=== PATIENT | male | born 1985 | race Caucasian/White ===

== ENCOUNTER 2020-12-12 22:53 | Emergency (ER) | payer SELFPAY ==
[2020-12-12 23:52] LABS: Absolute Lymphocytes (CBC) 3.2 K/uL (0.7-4.9); Basophils % 0.8 % (0-1.3); Hematocrit 37.6 % (39.6-49.0); Lymphocytes % 47.1 % (15.3-44.8); MPV 7.8 fL (7.6-11.3); Protime INR 1.12; RBC Red Blood Cell Count 4.34 M/uL (4.33-5.43)
[2020-12-13 00:12] LABS: ALT/SGPT 32 U/L (12-78); AST/SGOT 15 U/L (15-37); Albumin 3.6 g/dL (3.4-5.0); Alkaline Phosphatase 102 U/L (45-117); BUN Blood Urea Nitrogen 14 mg/dL (7-18); Bicarbonate 25 mmol/L (21-32); Bilirubin Direct 0.1 mg/dL (0-0.2); Bilirubin Total 0.3 mg/dL (0.2-1.0); Glucose Level 316 mg/dL (74-106); NT PRO-BNP 272 pg/mL (<125); Potassium 3.6 mmol/L (3.5-5.1); Protein, Total 7.2 g/dL (6.4-8.2); Sodium Level 140 mmol/L (136-145); Troponin (Emerg Dept Use Only) < 0.02 ng/mL (0.0-0.045)
[2020-12-13] MEDS ORDERED: ASPIRIN EC 81 MG TAB PO ONE (00:21)
--- NOTE | 2020-12-13 03:24 | ER ---
Nurse's Notes [facility] Name: Shane Cuevas Age: 35 yrs Sex: Male : 1985 Arrival Date: 12/12/2020 Time: 22:58 Bed 28 Private MD: Diagnosis: Chest pain, unspecified Presentation: 12/12 22:59 Chief complaint: Patient states: BIBA. Pt was at rehab facility and felt "a little bc5 light headed and my chest was kind of hurting" Nurse at facility took BP which was "190 something over 140... it' s' never been that high with chest pain" Pt newly DX with HTN approx 20 days ago and started on Lisinopril 5 mg which was increased to 10 mg d/t "high readings" A\\T\\O x 3, RR is even and unlabored, speaking in clear and complete sentences at this time. Blood sugar 250, PMH of Bi-polar, metabolic syndrome and HTN. Coronavirus screen: Vaccine status: Patient reports receiving the 1st dose of the Covid vaccine. Ebola Screen: Patient negative for fever greater than or equal to 101.5 degrees Fahrenheit, and additional compatible Ebola Virus Disease symptoms Patient denies exposure to infectious person. Patient denies travel to an Ebola-affected area in the 21 days before illness onset. No symptoms or risks identified at this time. Initial Sepsis Screen: Does the patient meet any 2 criteria? No. Patient's initial sepsis screen is negative. Does the patient have a suspected source of infection? No. Patient's initial sepsis screen is negative. Risk Assessment: Do you want to hurt yourself or someone else? Patient reports no desire to harm self or others. Onset of symptoms was December 12, 2020. Care prior to arrival:. 22:59 Method Of Arrival: EMS: [facility] bc5 22:59 Acuity: KIKI 3 bc5 Triage Assessment: 23:07 General: Appears in no apparent distress. comfortable, Behavior is calm, cooperative, bc5 appropriate for age. Pain: Complains of pain in chest. Historical: - Allergies: 23:05 No Known Allergies; bc5 - PMHx: 23:05 Hypertensive disorder; bc5 23:06 Bipolar disorder; bc5 - Immunization history:: Adult Immunizations Last tetanus immunization: < 5 years ago Flu vaccine is not up to date. - Social history:: Smoking status: Patient denies any tobacco usage or history of. Screenin:08 Abuse screen: Denies threats or abuse. Denies injuries from another. Nutritional bc5 screening: No deficits noted. Tuberculosis screening: No symptoms or risk factors identified. Fall Risk None identified. No fall in past 12 months (0 pts). No secondary diagnosis (0 pts). IV access (20 points). Ambulatory Aid- None/Bed Rest/Nurse Assist (0 pts). Gait- Normal/Bed Rest/Wheelchair (0 pts) Mental Status- Oriented to own ability (0 pts). Total De La Garza Fall Scale indicates No Risk (0-24 pts). Assessment: 23:07 Neuro: No deficits noted. Cardiovascular: Reports chest pain, lightheadedness, Denies [facility] Rhythm is. Respiratory: No deficits noted. GI: No deficits noted. : No deficits noted. EENT: No deficits noted. Derm: No deficits noted. Musculoskeletal: No deficits noted. 12/13 00:21 Reassessment: No changes from previously documented assessment. Patient and/or family bc5 updated on plan of care and expected duration. Pain level reassessed. Patient denies pain at this time. Patient states symptoms have improved. 02:30 Reassessment: No changes from previously documented assessment. Patient and/or family bc5 updated on plan of care and expected duration. Pain level reassessed. Patient denies pain at this time. Patient states feeling better. Patient states symptoms have improved. 03:58 Reassessment: sue from [facility] is coming to pick patient up and to take back to [facility]. Vital Signs: 12/12 22:59 BP 172 / 106; Pulse 75; Resp 16; Temp 97.9; Pulse Ox 99% on R/A; Weight 106.59 kg (R); bc5 Height 6 ft. 0 in. (182.88 cm) (R); Pain 3/10; 12/13 00:19 BP 149 / 94; Pulse 66; Resp 15; Pulse Ox 97% on R/A; Pain 0/10; bc5 02:30 BP 154 / 87; Pulse 68; Resp 15; Temp 98.5(O); Pulse Ox 99% on R/A; Pain 0/10; bc5 03:25 BP 162 / 99; Pulse 56; Resp 14; Temp 98.5(O); Pulse Ox 98% ; Pain 0/10; bc5 12/12 22:59 Body Mass Index 31.87 (106.59 kg, 182.88 cm) bc5 ED Course: 12/12 22:58 Patient arrived in ED. em 22:59 Pamela Vences RN is Primary Nurse. bc5 23:03 Shane Guerrier NP is PHCP. pm1 23:03 Juan Rod MD is Attending Physician. pm1 23:05 Triage completed. bc5 23:08 Arm band placed on right wrist. bc5 23:08 Patient has correct armband on for positive identification. Placed in gown. Bed in low bc5 position. Call light in reach. Side rails up X2. 23:08 No provider procedures requiring assistance completed. Inserted saline lock: 20 gauge bc5 in right forearm, using aseptic technique. 23:31 XRAY Chest (1 view) In Process Unspecified. EDMS 12/13 03:27 IV discontinued, intact, bleeding controlled, No redness/swelling at site. Pressure bc5 dressing applied. Administered Medications: 12/12 23:55 Drug: Aspirin Chewable Tablet 324 mg Route: PO; cc4 12/13 00:21 Follow up: Response: No adverse reaction 5 Outcome: 03:23 Discharge ordered by . pm1 03:27 Condition: improved 5 03:57 Discharged to Rehab Facility bc5 03:57 Discharge instructions given to patient, Instructed on discharge instructions, follow up and referral plans. medication usage, Prescriptions given X 1. 04:05 Patient left the ED. 5 Signatures: Dispatcher [employer] EDPR Denzel Abernathy RN RN Shane Guerrier NP STAY CUTTER pm1 Treasure Perez RN RN cc4 Pamela Vences RN RN bc5 Corrections: (The following items were deleted from the chart) 12/12 23:42 23:08 Inserted saline lock: 5 5
--- NOTE | 2020-12-13 03:24 | EDPHYS ---
Physician Documentation [facility] Name: Shane Cuevas Age: 35 yrs Sex: Male : 1985 Arrival Date: 12/12/2020 Time: 22:58 Bed 28 Private MD: ED Physician Juan Rod HPI: 12/13 01:36 This 35 yrs old Male presents to ER via EMS with complaints of chest pain. pm1 01:36 The patient or guardian reports chest pain that is located primarily in the mid-sternal pm1 area. The pain does not radiate. Associated signs and symptoms: Pertinent positives: headache. The chest pain is described as sharp. Duration: The patient or guardian reports a single episode. Modifying factors: the symptoms are aggravated by deep breath, palpation of area. Severity of pain: in the emergency department the pain is a 3 / 10. The patient has not experienced similar symptoms in the past. The patient has been recently seen by a physician: recently diagnosed with hypertension and started on lisinopril 5 mg p.o. daily. Patient dose recently increased to 10 mg p.o. daily. Patient took last dosage 1-1/2 days ago. 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 Historical: - Allergies: 12/12 23:05 No Known Allergies; bc5 - PMHx: 23:05 Hypertensive disorder; bc5 23:06 Bipolar disorder; bc5 - Immunization history:: Adult Immunizations Last tetanus immunization: < 5 years ago Flu vaccine is not up to date. - Social history:: Smoking status: Patient denies any tobacco usage or history of. ROS: 12/13 01:36 Constitutional: Negative for fever, chills, and weight loss. pm1 Respiratory: Negative for shortness of breath, cough, wheezing, and pleuritic chest pain, Abdomen/GI: Negative for abdominal pain, nausea, vomiting, diarrhea, and constipation, Back: Negative for injury and pain, MS/Extremity: Negative for injury and deformity, Skin: Negative for injury, rash, and discoloration. Cardiovascular: Positive for chest pain, Negative for edema, palpitations. Neuro: Positive for dizziness, headache, Negative for numbness, tingling, weakness. All other systems are negative. Exam: 01:36 Constitutional: This is a well developed, well nourished patient who is awake, alert, pm1 and in no acute distress. Head/Face: Normocephalic, atraumatic. 01:36 Back: No spinal tenderness. No costovertebral tenderness. Full range of motion. Skin: Warm, dry with normal turgor. Normal color with no rashes, no lesions, and no evidence of cellulitis. MS/ Extremity: Pulses equal, no cyanosis. Neurovascular intact. Full, normal range of motion. 01:36 Eyes: Exam is negative for acute changes, Extraocular movements: no acute changes, Conjunctiva: no acute changes, no injection, Sclera: no acute changes, icterus, is not appreciated. 01:36 ENT: Exam is negative for acute changes, Mouth: no acute changes, Lips: normal, moist, Oral mucosa: normal, pink and intact, moist. 01:36 Cardiovascular: Rate: normal, Rhythm: regular, Pulses: no pulse deficits are appreciated. 01:36 Respiratory: Exam negative for acute changes, respiratory distress, shortness of breath. 01:36 Neuro: Exam negative for acute changes, Orientation: is normal, Mentation: is normal, Motor: is normal, moves all fours. Vital Signs: 12/12 22:59 BP 172 / 106; Pulse 75; Resp 16; Temp 97.9; Pulse Ox 99% on R/A; Weight 106.59 kg (R); bc5 Height 6 ft. 0 in. (182.88 cm) (R); Pain 3/10; 12/13 00:19 BP 149 / 94; Pulse 66; Resp 15; Pulse Ox 97% on R/A; Pain 0/10; bc5 02:30 BP 154 / 87; Pulse 68; Resp 15; Temp 98.5(O); Pulse Ox 99% on R/A; Pain 0/10; bc5 03:25 BP 162 / 99; Pulse 56; Resp 14; Temp 98.5(O); Pulse Ox 98% ; Pain 0/10; bc5 12/12 22:59 Body Mass Index 31.87 (106.59 kg, 182.88 cm) 5 MDM: 12/12 23:03 Patient medically screened. pm1 12/13 01:43 Data reviewed: vital signs. pm1 03:22 ED course: Negative troponin x2, reproducible chest pain with palpitation and deep pm1 breathing. Therefore will discharge the patient home follow-up. 12/12 23:04 Order name: Basic Metabolic Panel; Complete Time: 00:29 pm1 12/12 23:04 Order name: CBC with Diff; Complete Time: 00:29 pm1 12/12 23:04 Order name: LFT's; Complete Time: 00:29 pm1 12/12 23:04 Order name: Magnesium; Complete Time: 00:29 pm1 12/12 23:04 Order name: NT PRO-BNP; Complete Time: 00:29 pm1 12/12 23:04 Order name: PT-INR; Complete Time: 00:29 pm1 12/12 23:04 Order name: Troponin (emerg Dept Use Only); Complete Time: 00:29 pm1 12/12 23:04 Order name: XRAY Chest (1 view) pm1 12/12 23:04 Order name: EKG; Complete Time: 23:05 pm1 12/12 23:04 Order name: Cardiac monitoring; Complete Time: 23:09 pm1 12/12 23:04 Order name: EKG - Nurse/Tech; Complete Time: 23:41 pm1 12/12 23:04 Order name: IV Saline Lock; Complete Time: 23:41 pm1 12/13 02:34 Order name: Troponin (emerg Dept Use Only); Complete Time: 03:22 pm1 12/12 23:04 Order name: Labs collected and sent; Complete Time: 23:41 pm1 12/12 23:04 Order name: O2 Per Protocol; Complete Time: 23:09 pm1 12/12 23:04 Order name: O2 Sat Monitoring; Complete Time: 23:09 pm1 Administered Medications: 12/12 23:55 Drug: Aspirin Chewable Tablet 324 mg Route: PO; cc4 12/13 00:21 Follow up: Response: No adverse reaction bc5 Disposition: 12/14 03:01 Co-signature as Attending Physician, Juan Rod MD. ma2 Disposition Summary: 12/13/20 03:23 Discharge Ordered Location: Home pm1 Problem: new pm1 Symptoms: have improved pm1 Condition: Stable pm1 Diagnosis - Chest pain, unspecified pm1 Followup: pm1 - With: Emergency Department - When: As needed - Reason: Worsening of condition Followup: pm1 - With: Private Physician - When: 2 - 3 days - Reason: Recheck today's complaints, Continuance of care, Re-evaluation by your physician Discharge Instructions: - Discharge Summary Sheet pm1 - Nonspecific Chest Pain, Adult pm1 - Hypertension, Adult pm1 - Managing Your Hypertension pm1 Forms: - Medication Reconciliation Form pm1 - Thank You Letter pm1 - Antibiotic Education pm1 - Prescription Opioid Use pm1 Prescriptions: - Lisinopril 10 mg Oral Tablet - take 1 tablet by ORAL route once daily; 20 tablet; Refills: 0, Product pm1 Selection Permitted Signatures: Dispatcher [employer] EDMS Shane Guerrier NP MANAGER DIALYSIS pm1 Juan Rod MD MD ma2 Treasure Perez, RN RN cc4 Pamela Vences RN RN bc5
[2020-12-13 04:13] VITALS: TEMP 98.5
[2020-12-13 04:15] VITALS: BP 162/99; O2SAT 98
--- NOTE | 2020-12-13 07:27 | RAD REPORT ---
EXAM DESCRIPTION: RAD - Chest Single View - 12/12/2020 11:30 pm CLINICAL HISTORY: CHEST PAIN COMPARISON: None TECHNIQUE: AP portable chest image was obtained 12/12/2020 11:30 pm . FINDINGS: Lungs are clear. Heart and vasculature are normal. No measurable pleural effusion and no p neumothorax. No acute bony abnormality seen. No acute aortic findings suspected. IMPRESSION: No acute cardiopulmonary process.
--- NOTE | 2020-12-13 16:43 | EKG ---
Test Date: 2020-12-12 Test Time: 23:21:51 Trucking Supervisor: MEASUREMENT RESULTS: Intervals: Rate: 65 [place]: 114 QRSD: 98 QT: 436 QTc: 453 [place]: P: 40 [place]: 114 QRS: 44 T: 42 INTERPRETIVE STATEMENTS: Normal sinus rhythm Normal ECG No previous ECG available for comparison Electronically Signed On 12-13-20 16:42:43 CDT by Julián Cage
== END 2020-12-13 04:05 | disposition home or self-care (01) ==
LOC: ER 22:53
DX: R07.9 Chest pain, unspecified (principal); I10 Essential (primary) hypertension
CPT/HCPCS: 36415; 71045; 80048; 80076; 83735; 83880; 84484; 85025; 85610; 93005; 99284